=== PATIENT | female | born 1995 | race Two or more races ===

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

== ENCOUNTER 2017-06-06 22:09 | Emergency (ER) ==
[2017-06-06 22:26] VITALS: BP 97/63; TEMP 98.4; BMI 23.4
[2017-06-06] MEDS ORDERED: TYLENOL PO STA (22:41)
--- NOTE | 2017-06-06 23:01 | ED.PDOC ---
General ED Provider: Dr. MICHAEL BRITO Chief Complaint: Sore Throat Stated Complaint: sORE THROAT, SINUS CONGESTION, ABDOMINAL PAIN Time Seen by Physician: 22:58 Mode of Arrival: Walk-In Information Source: Patient Nursing and Triage Documentation Reviewed and Agree: Yes Reviewed sepsis parameters & appropriate labs ordered?: No System Inflammatory Response Syndrome: Not Applicable Sepsis Protocol: For patient's 13 years and over: Temp is 96.8 and below OR 101 and greater Pulse >90 BPM Resp >20/minute Acutely Altered Mental Status Are patient's symptoms suggestive of a new infection, such as: -Pneumonia -Skin, Soft Tissue -Endocarditis -UTI -Bone, Joint Infection -Implantable Device -Acute Abdominal Infection -Wound Infection -Meningitis -Blood Stream Catheter Infection -Unknown EENT Complaint Exam - Throat Complaint/Exam Symptoms Are: Still present Timimg: Constant Initial Severity: Mild Current Severity: Mild Aggravating: Reports: Eating Alleviating: Reports: None Associated Signs and Symptoms: Reports: Dysphagia, Hoarseness, Nasal congestion. Denies: Fever, Drooling, Foreign body sensation, Chills, Cough, Wheezing, Sinus discomfort, Difficulty breathing, Lethargy, Irritability, Decreased activity, Vomiting, Diarrhea, Decreased hearing, Ear drainage Uvula Midline: Yes Halle-tonsillar Fluctuence: No Scarlatinaform Rash Present: No Stridor Present: No Sinus Tenderness Present: No Tonsillar Hypertrophy Present: No Tonsillar Exudate Present: No Halle-tonsillar Swelling Present: No Adenopathy Present: No Splenomegaly Present: No Differential Diagnoses: Influenza, Pharyngitis, URI Review of Systems - Review Of Systems Constitutional: Reports: Malaise, Weakness Eyes: Reports: No symptoms Ears, Nose, Mouth, Throat: Reports: Throat pain Respiratory: Reports: No symptoms Cardiac: Reports: No symptoms GI: Reports: Abdominal pain : Reports: No symptoms Musculoskeletal: Reports: No symptoms Skin: Reports: No symptoms Neurological: Reports: No symptoms Endocrine: Reports: No symptoms Hematologic/Lymphatic: Reports: No symptoms All Other Systems: Reviewed and Negative Past Medical History - Past Medical History Previously Healthy: No Endocrine: Reports: None Cardiovascular: Reports: None Respiratory: Reports: None Hematological: Reports: None Gastrointestinal: Reports: None Genitourinary: Reports: None Neuro/Psych: Reports: Anxiety Musculoskeletal: Reports: None Cancer: Reports: None Last Menstrual Period: 3-20-18 Other Pertinent Past Medical History: Rash - Surgical History General Surgical History: Reports: None - Family History Family History: Reports: None - Social History Smoking Status: Current every day smoker, Light tobacco smoker Smoking Cessation Counseling Time: > 3 min - 10 min Hx Substance Use: No Alcohol Screening: None - Immunizations Tetanus Shot up to Date: Yes Physical Exam - Physical Exam Appearance: Ill-appearing, Obese Eyes: RAY, EOMI, Conjunctiva clear ENT: Erythema Respiratory: Airway patent, Breath sounds clear, Breath sounds equal, Respirations nonlabored Cardiovascular: RRR, Pulses normal, No rub, No murmur GI/: Soft, Nontender, No masses, Bowel sounds normal, No Organomegaly Musculoskeletal: Normal strength, ROM intact, No edema, No calf tenderness Skin: Warm, Dry, Normal color Neurological: Sensation intact, Motor intact, Reflexes intact, Cranial nerves intact, Alert, Oriented Psychiatric: Affect appropriate, Mood appropriate Critical Care Note - Critical Care Note Total Time (mins): 30 Course - Course Orders, Labs, Meds: Orders Category Date Time Status FLU A & B MOLECULAR [FLU A/B MOLECULAR] Stat LAB 06/06/17 22:49 Ordered MOLECULAR GROUP A STREP Stat LAB 06/06/17 22:46 Ordered Acetaminophen [Tylenol] MEDS 06/06/17 22:41 Discontinued 325 mg PO ONCE STA Medications Discontinued Medications Generic Name Dose Route Start Last Admin Trade Name Freq PRN Reason Stop Dose Admin Acetaminophen 325 mg 06/06/17 22:41 06/06/17 22:46 Tylenol PO 06/06/17 22:42 325 mg ONCE STA Administration Vital Signs: Temp Pulse Resp BP Pulse Ox 06/06/17 22:10 98.4 F 85 20 97/63 99 Departure - Departure Time of Disposition: 23:02 Disposition: HOME SELF-CARE Discharge Problem: Sore throat symptom Instructions: Upper Respiratory Infection (ED) Condition: Stable Pt referred to PMD for follow-up: Yes IPMP verified?: No Additional Instructions: Tylenol prn Increase Hydration Probiotics if not better f/u with [facility] Prescriptions: Amoxicillin/Potassium Clav [Augmentin 500-125 mg Tab] 1 tab PO Q12HR #20 tablet Prednisone 10 mg PO BIDWM #14 tablet Allergies/Adverse Reactions: Allergies ibuprofen Adverse Reaction (Verified 06/06/17 22:21) STATES CANNOT TAKE IBUPROFEN DUE TO ANEMIA Home Medications: Ambulatory Orders Amoxicillin/Potassium Clav [Augmentin 500-125 mg Tab] 1 tab PO Q12HR #20 tablet 06/06/17 Ferrous Sulfate 325 mg PO DAILY 06/06/17 Pantoprazole Sodium [Protonix] 40 mg PO BEDTIME 06/06/17 Prednisone 10 mg PO BIDWM #14 tablet 06/06/17 Disposition Discussed With: Patient
[2017-06-06] MEDS ORDERED: AUGMENTIN 500-125 MG TAB PO STA (23:08)
[2017-06-06] MEDS ORDERED: PEDIAPRED 5 MG/5 ML SOL PO STA (23:08)
== END 2017-06-06 23:24 | disposition home or self-care (01) ==
LOC: ED 22:09
DX: J02.9 Acute pharyngitis, unspecified (principal); J06.9 Acute upper respiratory infection, unspecified; R10.9 Unspecified abdominal pain; F17.210 Nicotine dependence, cigarettes, uncomplicated
CPT/HCPCS: 87502; 87651; 99283

== ENCOUNTER 2018-04-06 16:15 | Emergency (ER) ==
[2018-04-06 16:24] VITALS: TEMP 98.4; BMI 24.1
[2018-04-06 18:25] VITALS: BP 101/71
--- NOTE | 2018-04-06 18:30 | ED.PDOC ---
General ED Provider: Dr. JEN MORA Chief Complaint: Dizziness Stated Complaint: CALLED FROM [employer] [employer] Time Seen by Physician: 18:29 Mode of Arrival: Walk-In Information Source: Patient Exam Limitations: No limitations Referred to ED by: Other Nursing and Triage Documentation Reviewed and Agree: Yes Does patient meet sepsis criteria?: No System Inflammatory Response Syndrome: Not Applicable Sepsis Protocol: For patient's 13 years and over: Temp is 96.8 and below OR 101 and greater Pulse >90 BPM Resp >20/minute Acutely Altered Mental Status Are patient's symptoms suggestive of a new infection, such as: -Pneumonia -Skin, Soft Tissue -Endocarditis -UTI -Bone, Joint Infection -Implantable Device -Acute Abdominal Infection -Wound Infection -Meningitis -Blood Stream Catheter Infection -Unknown Cardiovascular Complaint Exam - Palpitations Complaint/Exam Onset/Duration: CHRONIC Symptoms Are: Still present Timing: Intermittent Initial Severity: Mild Current Severity: Mild Character: Reports: Irregular Aggravating: Reports: Exertion Alleviating: Reports: Rest Associated Signs and Symptoms: Reports: Dizziness Related History: Similar episode Related Surgical History: Reports: None Cardiac Risk Factors: Reports: None Pulmonary Embolism Risk Factors: Reports: None Atrial Fibrillation Risk Factors: Reports: None Thyroid Exam: Normal Differential Diagnoses: Other Review of Systems - Review Of Systems Constitutional: Reports: No symptoms Eyes: Reports: No symptoms Ears, Nose, Mouth, Throat: Reports: No symptoms Respiratory: Reports: No symptoms Cardiac: Reports: No symptoms GI: Reports: No symptoms : Reports: No symptoms Musculoskeletal: Reports: No symptoms Skin: Reports: No symptoms Neurological: Reports: No symptoms Endocrine: Reports: No symptoms Hematologic/Lymphatic: Reports: No symptoms All Other Systems: Reviewed and Negative Past Medical History - Past Medical History Previously Healthy: No Endocrine: Reports: None Cardiovascular: Reports: None Respiratory: Reports: None Hematological: Reports: None Gastrointestinal: Reports: None Genitourinary: Reports: None Neuro/Psych: Reports: Anxiety Musculoskeletal: Reports: None Cancer: Reports: None Last Menstrual Period: now Other Pertinent Past Medical History: Rash - Surgical History General Surgical History: Reports: None - Family History Family History: Reports: None - Social History Smoking Status: Current every day smoker, Light tobacco smoker Hx Substance Use: No Alcohol Screening: None Physical Exam - Physical Exam Appearance: Well-appearing Ill-appearing: Mild Pain Distress: None Eyes: RAY ENT: Ears normal Neck: Supple Respiratory: Airway patent Cardiovascular: Pulses normal GI/: Nontender, Hepatomegaly Musculoskeletal: Normal strength Skin: Dry Neurological: Sensation intact Critical Care Note - Critical Care Note Total Time (mins): 0 Course - Course Hematology/Chemistry: 04/06/18 18:42 Orders, Labs, Meds: Lab Review 04/06/18 18:42 WBC 7.62 RBC 4.54 Hgb 10.5 L Hct 34.7 L MCV 76.4 L MCH 23.1 L MCHC 30.3 L RDW Coeff of Atul 19.6 H Plt Count 281 Immature Gran % (Auto) 0.3 Neut % (Auto) 71.8 Lymph % (Auto) 22.8 [place] % (Auto) 4.3 Eos % (Auto) 0.1 Baso % (Auto) 0.7 Immature Gran # (Auto) 0.0 Neut # (Auto) 5.5 Lymph # (Auto) 1.7 [place] # (Auto) 0.3 L Eos # (Auto) 0.0 Baso # (Auto) 0.1 Orders Category Date Time Status IV [ED IV/MEDIPORT/POWERPORT] .ONCE EMERGENCY 04/06/18 18:38 Active CBC W/ AUTO DIFF Stat LAB 04/06/18 18:42 Completed 0.9 % Sodium Chloride [Saline Flush] MEDS 04/06/18 18:38 Ordered 1 syr IVF PRN PRN Ondansetron HCl/Pf [Zofran 4 mg/2 ml] MEDS 04/06/18 18:41 Discontinued 4 mg IVP ONCE STA Sodium Chloride 0.9% [Sodium Chloride] 1,000 ml MEDS 04/06/18 18:40 Discontinued IV BOLUS Medications Generic Name Dose Route Start Last Admin Trade Name Freq PRN Reason Stop Dose Admin Sodium Chloride 1 syr 04/06/18 18:38 04/06/18 19:03 Saline Flush IVF 1 syr PRN PRN Administration To flush IV Discontinued Medications Generic Name Dose Route Start Last Admin Trade Name Freq PRN Reason Stop Dose Admin Sodium Chloride 1,000 mls @ 1,000 mls/hr 04/06/18 18:40 04/06/18 19:03 Sodium Chloride IV 04/06/18 19:39 1,000 mls/hr BOLUS STA Administration Ondansetron HCl 4 mg 04/06/18 18:41 04/06/18 19:04 Zofran 4 Mg/2 Ml IVP 04/06/18 18:42 4 mg ONCE STA Administration Vital Signs: Temp Pulse Resp BP Pulse Ox 04/06/18 18:25 101/71 100 04/06/18 17:29 106/75 100 04/06/18 16:16 98.4 F 82 20 113/74 98 CONOR Risk Score CONOR Risk Score: Risk Score Odds of by 30D 0 0.1 (0.1-0.2) 1 0.3 (0.2-0.3) 2 0.4 (0.3-0.5) 3 0.7 (0.6-0.9) 4 1.2 (1.0-1.5) 5 2.2 (1.9-2.6) 6 3.0 (2.5-3.6) 7 4.8 (3.8-6.1) Departure - Departure Time of Disposition: 19:42 Disposition: HOME SELF-CARE Discharge Problem: Anemia Condition: Good Pt referred to PMD for follow-up: No (FOLLOW WITH pcp FOR IRON THERAPY) IPMP verified?: No Allergies/Adverse Reactions: Allergies ibuprofen Adverse Reaction (Verified 04/06/18 16:25) STATES CANNOT TAKE IBUPROFEN DUE TO ANEMIA Home Medications: Ambulatory Orders Ferrous Sulfate 325 mg PO DAILY 06/06/17 Disposition Discussed With: Patient, Family
[2018-04-06] MEDS: SODIUM CHLORIDE 1,000 ML IV STA (19:03)
[2018-04-06] MEDS: ZOFRAN 4 MG/2 ML IVP STA (19:04)
== END 2018-04-06 20:05 | disposition home or self-care (01) ==
LOC: ED 16:15
DX: D64.9 Anemia, unspecified (principal); R42 Dizziness and giddiness; R53.1 Weakness; F17.210 Nicotine dependence, cigarettes, uncomplicated
CPT/HCPCS: 36415; 85025; 96361; 96374; 96375; 99283

== ENCOUNTER 2018-05-14 21:10 | Emergency (ER) ==
[2018-05-14 21:19] VITALS: BP 113/78; TEMP 99.4; BMI 24.3
--- NOTE | 2018-05-14 21:31 | ED.PDOC ---
General ED Provider: Dr. JEN MORA Chief Complaint: Headache Stated Complaint: migrainae headache Time Seen by Physician: 21:00 Mode of Arrival: Walk-In Information Source: Patient Exam Limitations: No limitations Primary Care Provider: NOAH OLIVER Nursing and Triage Documentation Reviewed and Agree: Yes Does patient meet sepsis criteria?: No System Inflammatory Response Syndrome: Not Applicable Sepsis Protocol: For patient's 13 years and over: Temp is 96.8 and below OR 101 and greater Pulse >90 BPM Resp >20/minute Acutely Altered Mental Status Are patient's symptoms suggestive of a new infection, such as: -Pneumonia -Skin, Soft Tissue -Endocarditis -UTI -Bone, Joint Infection -Implantable Device -Acute Abdominal Infection -Wound Infection -Meningitis -Blood Stream Catheter Infection -Unknown EENT Complaint Exam - Eye Complaint/Exam Onset/Duration: today Symptoms Are: Still present Timing: Intermittent Initial Severity: Mild Current Severity: Mild Location: Bilateral Character: Reports: Throbbing Aggravating: Reports: Light Alleviating: Reports: Darkness Associated Signs and Symptoms: Reports: Photophobia Related History: Reports: Similar episode Eye Surgical History: Reports: None Penetrating Injury Risk Factors: None Visual Field: Normal Extraocular Movement: Normal Orbit Findings: Normal Globe Findings: Intact Lid Findings: Normal Corneal Findings: Clear Fundi: Normal Slit Lamp Used: No Differential Diagnoses: Other Review of Systems - Review Of Systems Constitutional: Reports: No symptoms Eyes: Reports: Photophobia Ears, Nose, Mouth, Throat: Reports: No symptoms Respiratory: Reports: No symptoms Cardiac: Reports: No symptoms GI: Reports: Nausea : Reports: No symptoms Musculoskeletal: Reports: No symptoms Skin: Reports: No symptoms Neurological: Reports: No symptoms, Headache Endocrine: Reports: No symptoms Hematologic/Lymphatic: Reports: No symptoms All Other Systems: Reviewed and Negative Past Medical History - Past Medical History Previously Healthy: No Endocrine: Reports: None Cardiovascular: Reports: None Respiratory: Reports: None Hematological: Reports: None Gastrointestinal: Reports: None Genitourinary: Reports: None Neuro/Psych: Reports: Anxiety Musculoskeletal: Reports: None Cancer: Reports: None Last Menstrual Period: Other Pertinent Past Medical History: Rash - Surgical History General Surgical History: Reports: None - Family History Family History: Reports: None - Social History Smoking Status: Current every day smoker, Light tobacco smoker Hx Substance Use: Yes (marijuana) Alcohol Screening: None - Immunizations Tetanus Shot up to Date: Yes Physical Exam - Physical Exam Appearance: Well-appearing Ill-appearing: Moderate Pain Distress: Mild Eyes: RAY ENT: Ears normal Neck: Supple Respiratory: Airway patent Cardiovascular: RRR GI/: Soft Musculoskeletal: Normal strength Skin: Warm Neurological: Sensation intact Critical Care Note - Critical Care Note Total Time (mins): 0 Course - Course Vital Signs: Temp Pulse Resp BP Pulse Ox 05/14/18 21:11 99.4 F 85 20 113/78 99 Departure - Departure Time of Disposition: 21:38 Disposition: HOME SELF-CARE Discharge Problem: Migraine Instructions: Acute Headache (ED) Condition: Good Pt referred to PMD for follow-up: Yes IPMP verified?: No Additional Instructions: Sumatriptan 6 mg SC Allergies/Adverse Reactions: Allergies ibuprofen Adverse Reaction (Verified 05/14/18 21:18) STATES CANNOT TAKE IBUPROFEN DUE TO ANEMIA Home Medications: Ambulatory Orders Ferrous Sulfate 325 mg PO BEDTIME 06/06/17 Disposition Discussed With: Patient
[2018-05-14] MEDS ORDERED: IMITREX SUBCUT STA (21:41)
== END 2018-05-14 22:21 | disposition home or self-care (01) ==
LOC: ED 21:10
DX: G43.909 Migraine, unspecified, not intractable, without status migrainosus (principal); F17.210 Nicotine dependence, cigarettes, uncomplicated
CPT/HCPCS: 96372; 99282